=== PATIENT | male | born 1995 | race African-American/Black ===

== ENCOUNTER 2019-04-29 22:49 | Emergency (ER) | payer OTHER ==
[~2019-04-29] VITALS: Ht 170.2 cm; Wt 79.5 kg
[2019-04-29] MEDS ORDERED: IBUPROFEN 800 MG TAB PO ONE (23:45)
[2019-04-29 23:53] LABS: INFLUENZA A AMPLIFICATION NEGATIVE (NEGATIVE); INFLUENZA B AMPLIFICATION NEGATIVE (NEGATIVE)
--- NOTE | 2019-04-30 00:21 | REP ---
Clinical: Productive cough and chest pain . Technique: PA and lateral. Comparison: None . Findings: Left lower lobe/retrocardiac infiltrate compatible with acute pneumonia. Follow-up to resolution recommended. The mediastinum and cardiothymic silhouette are normal. No effusion, or pneumothorax. Skeletal structures are intact and normal for age. Impression: Left lower lobe/retrocardiac opacity suggesting atelectasis/pneumonia. Follow-up to resolution recommended. Electronically Signed by Tru Tucker MD 04/30/2019 12:12 A
[2019-04-30 00:34] LABS: BASO # 0.1 10^3/uL (0.0-0.2); BASO % 0.3 % (0.0-1.0); EOS % 0.2 % (0.0-3.0); HEMOGLOBIN 13.6 g/dl (13.5-17.5); LYMPH % 5.5 % (24.0-44.0); MEAN CORPUSCULAR HEMOGLOBIN 28.8 pg (27.0-33.0); MEAN CORPUSCULAR HGB CONC 33.2 g/dl (32.0-36.5); MEAN CORPUSCULAR VOLUME 86.9 fl (80.0-96.0); MONO # 1.3 10^3/uL (0.0-0.8); MONO % 7.3 % (0.0-5.0); NEUTROPHILS % 86.2 % (36.0-66.0); PLATELET COUNT, AUTOMATED 171 10^3/uL (150-450); RED BLOOD COUNT 4.72 10^6/uL (4.30-6.10); WHITE BLOOD COUNT 17.4 10^3/uL (4.0-10.0)
[2019-04-30 01:05] LABS: ALBUMIN 3.9 GM/DL (3.2-5.2); ALT/SGPT 21 U/L (12-78); BILIRUBIN,DIRECT 0.2 MG/DL (0.0-0.2); CK-MB VALUE MASS < 1.0 NG/ML (<3.6); CPK CREATINE PHOSPHOKINASE 284 U/L (39-308); LIPASE 70 U/L (73-393); MB/CK RELATIVE INDEX 0.35 (< OR =4); TOTAL PROTEIN 7.4 GM/DL (6.4-8.2); TROPONIN I < 0.02 NG/ML (< 0.10)
[2019-04-30] MEDS ORDERED: AMOX500C PO (01:24)
[2019-04-30] MEDS ORDERED: TESS100C PO (01:24)
[2019-04-30] MEDS ORDERED: PROAAER10 INH (01:24)
[2019-04-30] MEDS ORDERED: AMOXICILLIN 500 MG CAP PO ONE (01:30)
[2019-04-30] MEDS ORDERED: ALBUTEROL 90 MCG/ACT 8GM HFA INHALER INH ONE (01:30)
[2019-04-30] MEDS ORDERED: BENZONATATE 100 MG CAP PO ONE (01:30)
[2019-04-30 01:51] VITALS: BP 120/56
--- NOTE | 2019-04-30 06:13 | ED PDOC ---
Post-Departure Follow-Up ethan mendez faxed formal report of cxr for fu Atif Mejias MD Apr 30, 2019 06:13
--- NOTE | 2019-04-30 15:33 | ECGEPIP ---
[facility] - ED Test Date: 2019-04-30 Pat Name: ANTONIO MEZA Department: Room: - Gender: Male [employer]: DAMI : 1995 Requested By: CAROLYN Stahl PA-C Order Number: [id number] Reading MD: Luci Tellez Measurements Intervals [place] Rate: 94 P: 66 CO: 144 QRS: 68 QRSD: 88 T: 14 QT: 317 QTc: 397 Interpretive Statements SINUS RHYTHM NSTTW abnormalities NO PRIOR Electronically Signed on 04-30-2019 15:32:58 EDT by Luci Tellez
== END 2019-04-30 01:53 | disposition home or self-care (01) ==
LOC: M ED 22:49
DX: J18.9 Pneumonia, unspecified organism (principal); R94.31 Abnormal electrocardiogram [ECG] [EKG]

== ENCOUNTER 2019-12-08 12:14 | Emergency (ER) | payer OTHER ==
[~2019-12-08] VITALS: Ht 170.2 cm; Wt 82.8 kg
[~2019-12-08 12:14] MED LIST: AMOX500C PO; PROAAER10 INH; TESS100C PO
[2019-12-08] MEDS: IBUPROFEN 600MG TAB PO ONE (14:35)
[2019-12-08] MEDS: ACETAMINOPHEN 325 MG TAB PO ONE (14:35)
[2019-12-08] MEDS ORDERED: IBUP-1022 PO (14:37)
[2019-12-08 15:12] VITALS: BP 125/72
--- NOTE | 2019-12-08 17:13 | REP ---
CT BRAIN WITHOUT CONTRAST: REASON FOR EXAM: Headache. There are no priors for comparison. No history of trauma. TECHNIQUE: 4.5 mm contiguous transaxial sections were obtained from the skull base to the cerebral convexities with thin cuts through the posterior fossa without the administration of intravenous contrast. FINDINGS: The ventricles and sulci are consistent with the patient's age. There are no extra-axial fluid collections. There is no mass effect. The deep cerebral white matter is consistent with the patient's age. The orbital and petrous structures, cerebellopontine angles, and posterior fossa are unremarkable. The sella turcica, cavernous, and paracavernous structures are essentially unremarkable. The visualized portions of the paranasal sinuses and mastoid air cells are clear. Images of the skull base show no gross abnormality. IMPRESSION: Essentially unremarkable CT examination of the brain. Electronically Signed by Suresh Miguel DO 12/08/2019 05:39 P
== END 2019-12-08 15:13 | disposition home or self-care (01) ==
LOC: M ED 12:14
DX: R51 Headache (principal); M26.621 Arthralgia of right temporomandibular joint; F17.200 Nicotine dependence, unspecified, uncomplicated

== ENCOUNTER 2020-11-25 10:33 | Emergency (ER) | payer OTHER ==
[~2020-11-25] VITALS: Ht 170.2 cm; Wt 81.8 kg
[~2020-11-25 10:33] MED LIST changes: +IBUP-1022 PO
[2020-11-25] MEDS ORDERED: ZOVI5CRE4 TOP (12:11)
[2020-11-25] MEDS ORDERED: VALA1TAB5 PO (12:11)
[2020-11-25 12:34] VITALS: BP 118/75
== END 2020-11-25 12:35 | disposition home or self-care (01) ==
LOC: M ED 10:33
DX: B00.1 Herpesviral vesicular dermatitis (principal)